=== PATIENT | female | born 1970 | race African-American/Black ===

== ENCOUNTER 2022-06-24 09:31 | Emergency (ER) | payer MEDICAID ==
[~2022-06-24] VITALS: Ht 167.6 cm; Wt 54.5 kg
[2022-06-24 09:32] VITALS: BP 118/85
== END 2022-06-24 11:00 | disposition left against medical advice (07) ==
LOC: EMS 09:54
DX: M79.605 Pain in left leg (principal)
CPT/HCPCS: 99281; Z7502